=== PATIENT | male | born 1960 | race Caucasian/White ===

== ENCOUNTER 2020-11-06 03:05 | Inpatient (IN) | payer MEDICAID, SELFPAY ==
[~2020-11-06] VITALS: Ht 182.9 cm; Wt 106.6 kg
[2020-11-06 03:05] VITALS: BP_SYST 138
[~2020-11-06 03:05] MED LIST: ASPI-859 PO; GLIP10TA11 PO; LISI2.5T48 PO; LOP600 PO; SITA100T11 PO
[2020-11-06] MEDS ORDERED: MORPHINE 4 MG/ML INJ. SYRINGE IVP ONE (03:15)
[2020-11-06] MEDS ORDERED: DIPHENHYDRAMINE INJ 50 MG/ML VIAL IVP ONE (03:15)
[2020-11-06] MEDS ORDERED: ONDANSETRON HCL 4 MG/2 ML VIAL IVP ONE (03:15)
[2020-11-06] MEDS ORDERED: NACL 0.9% 1,000 ML IV ONE ×2 (03:15→08:00)
[2020-11-06] MEDS ORDERED: PANTOPRAZOLE SODIUM 40 MG/VIAL (PROTONIX) IVP ONE (04:15)
[2020-11-06] MEDS ORDERED: INSULIN REGULAR, HUMAN 10 UNITS/0.1 ML INJ IVP ONE (04:15)
[2020-11-06 04:50] LABS: BASOPHILS % (AUTO) 0.4 % (0.0-2.0)
[2020-11-06] MEDS ORDERED: fentaNYL CITRATE/PF 100 MCG/2 ML AMP IVP ONE (05:00)
[2020-11-06 05:06] LABS: EOSINOPHILS % (AUTO) 0.4 % (0.0-4.0); HEMATOCRIT 47.1 % (36-54); HEMOGLOBIN 15.6 g/dL (14.0-18.0); LYMPHOCYTES # (AUTO) 1.7 K/uL (1.0-5.5); LYMPHOCYTES % (AUTO) 14.3 % (20.5-51.5); MEAN CORPUSCULAR HEMOGLOBIN 29 pg (27-31); MEAN CORPUSCULAR HGB CONC 33 % (32-36); MEAN CORPUSCULAR VOLUME 87 fL (79.0-98.0); MONOCYTES # (AUTO) 0.4 K/uL (0.0-1.0); MONOCYTES % (AUTO) 3.3 % (1.7-9.3); NEUTROPHILS # (AUTO) 9.8 K/uL (1.8-7.7); NEUTROPHILS % (AUTO) 81.6 % (40.0-70.0); PLATELET COUNT (AUTO) 161 K/uL (130-430); RED BLOOD CELL COUNT(AUTO) 5.39 MIL/uL (4.2-6.2); RED CELL DISTRIBUTION WIDTH 14.2 % (9.0-15.0)
[2020-11-06 05:10] LABS: CHOLESTEROL 373 mg/dL (<200)
[2020-11-06 05:18] LABS: BILIRUBIN,URINE NEGATIVE (NEGATIVE); BLOOD, URINE NEGATIVE (NEGATIVE); CLARITY/URINE CLEAR (CLEAR); COLOR,URINE YELLOW (YELLOW); GLUCOSE,URINE 3+ (NEGATIVE); KETONES,URINE 2+ (NEGATIVE); LEUKOCYTE ESTERASE ,URINE NEGATIVE (NEGATIVE); NITRITE, URINE NEGATIVE (NEGATIVE); PROTEIN URINE 1+ (NEGATIVE); UROBILINOGEN,URINE 0.2 (0.2-1.0)
[2020-11-06 05:24] LABS: TRIGLYCERIDES 5633 mg/dL (30-150)
[2020-11-06 05:46] LABS: CREATININE 0.73 mg/dL (0.55-1.30)
[2020-11-06 05:59] LABS: POTASSIUM 4.1 mmol/L (3.5-5.1)
[2020-11-06 06:01] LABS: CALCIUM 6.3 mg/dL (8.4-11.0)
[2020-11-06] MEDS ORDERED: MORPHINE 2 MG/ML INJ. SYRINGE IVP PRN (06:30)
[2020-11-06] MEDS ORDERED: GLUCOSE (DEXTROSE) ORAL GEL -Adults PO PRN (07:00)
[2020-11-06] MEDS ORDERED: D5W 1,000 ML IV PRN (07:00)
[2020-11-06] MEDS ORDERED: DEXTROSE 50%-WATER 50 ML DISP.SYRIN IVP PRN (07:00)
[2020-11-06] MEDS: NACL 0.9% 1,000 ML IV SCH ×3 (07:02→22:16)
[2020-11-06] MEDS ORDERED: LORA-259 PO (07:35)
[2020-11-06] MEDS: MORPHINE 4 MG/ML INJ. SYRINGE IVP PRN ×3 (09:52→22:17)
[2020-11-06 10:00] VITALS: BP_SYST 140
[2020-11-06] MEDS ORDERED: ONDANSETRON HCL 4 MG/2 ML VIAL IVP PRN (10:45)
[2020-11-06] MEDS ORDERED: METOCLOPRAMIDE HCL 10 MG/2 ML VIAL IVP PRN (10:45)
[2020-11-06] MEDS: INSULIN REGULAR, HUMAN 100 UNITS/ML, 10 ML VIAL (humuLIN R) SUBCUT SCH ×3 (11:38→23:40)
[2020-11-06 16:30] VITALS: BP_SYST 115
[2020-11-06 18:03] LABS: CREATININE 0.85 mg/dL (0.55-1.30); POTASSIUM 4.1 mmol/L (3.5-5.1)
[2020-11-06 18:08] LABS: CALCIUM 6.7 mg/dL (8.4-11.0)
[2020-11-06 18:19] LABS: ALBUMIN 2.9 g/dL (3.4-4.8); TOTAL BILIRUBIN 0.7 mg/dL (0.0-1.0)
[2020-11-06 21:00] VITALS: BP_SYST 112
[2020-11-06] MEDS ORDERED: PIPERACILLIN/TAZOBACTAM 3.375 GM/VIAL (ZOSYN) IV ONE (22:52)
[2020-11-06] MEDS: PIPERACILLIN/TAZO 3.375/DEX-IS 50 ML IV SCH (23:30)
[2020-11-07 01:53] VITALS: BP_SYST 112
[2020-11-07] MEDS: PIPERACILLIN/TAZO 3.375/DEX-IS 50 ML IV SCH ×4 (04:59→22:15)
[2020-11-07] MEDS: NACL 0.9% 1,000 ML IV SCH ×4 (04:59→19:48)
[2020-11-07] MEDS: INSULIN REGULAR, HUMAN 100 UNITS/ML, 10 ML VIAL (humuLIN R) SUBCUT SCH ×3 (05:22→17:54)
[2020-11-07 06:23] LABS: BASOPHILS % (AUTO) 0.4 % (0.0-2.0); EOSINOPHILS % (AUTO) 0.4 % (0.0-4.0); HEMATOCRIT 42.8 % (36-54); HEMOGLOBIN 14.7 g/dL (14.0-18.0); LYMPHOCYTES # (AUTO) 1.6 K/uL (1.0-5.5); LYMPHOCYTES % (AUTO) 14.8 % (20.5-51.5); MEAN CORPUSCULAR HEMOGLOBIN 30 pg (27-31); MEAN CORPUSCULAR HGB CONC 34 % (32-36); MEAN CORPUSCULAR VOLUME 88 fL (79.0-98.0); MONOCYTES # (AUTO) 0.5 K/uL (0.0-1.0); MONOCYTES % (AUTO) 4.8 % (1.7-9.3); NEUTROPHILS # (AUTO) 8.5 K/uL (1.8-7.7); NEUTROPHILS % (AUTO) 79.6 % (40.0-70.0); PLATELET COUNT (AUTO) 196 K/uL (130-430); RED BLOOD CELL COUNT(AUTO) 4.85 MIL/uL (4.2-6.2); RED CELL DISTRIBUTION WIDTH 14.4 % (9.0-15.0); WHITE BLOOD COUNT (AUTO) 10.7 K/uL (4.8-10.8)
[2020-11-07 07:27] LABS: ALBUMIN 2.8 g/dL (3.4-4.8); CALCIUM 7.7 mg/dL (8.4-11.0); CREATININE 1.05 mg/dL (0.55-1.30); POTASSIUM 4.1 mmol/L (3.5-5.1); THYROID STIMULATING HORMONE 0.87 uIu/mL (0.36-3.74); TOTAL BILIRUBIN 0.5 mg/dL (0.0-1.0)
[2020-11-07 08:00] VITALS: BP_SYST 124
[2020-11-07] MEDS ORDERED: NACL 0.9% 1,000 ML IV ONE (10:15)
[2020-11-07 12:11] VITALS: BP_SYST 109
[2020-11-07 16:19] VITALS: BP_SYST 115
[2020-11-07] MEDS: MORPHINE 4 MG/ML INJ. SYRINGE IVP PRN (19:57)
[2020-11-07 20:00] VITALS: BP_SYST 104
[2020-11-08] MEDS: INSULIN REGULAR, HUMAN 100 UNITS/ML, 10 ML VIAL (humuLIN R) SUBCUT SCH ×5 (00:10→23:46)
[2020-11-08 00:15] VITALS: BP_SYST 103
[2020-11-08] MEDS ORDERED: ACETAMINOPHEN 325 MG TABLET PO PRN (00:30)
[2020-11-08] MEDS: NACL 0.9% 1,000 ML IV SCH ×4 (01:11→20:04)
[2020-11-08] MEDS: PIPERACILLIN/TAZO 3.375/DEX-IS 50 ML IV SCH ×2 (03:41→11:02)
[2020-11-08 06:35] LABS: BASOPHILS % (AUTO) 0.5 % (0.0-2.0); EOSINOPHILS # (AUTO) 0.1 K/uL (0.0-0.4); EOSINOPHILS % (AUTO) 1.6 % (0.0-4.0); HEMATOCRIT 37.4 % (36-54); HEMOGLOBIN 12.4 g/dL (14.0-18.0); LYMPHOCYTES # (AUTO) 1.9 K/uL (1.0-5.5); LYMPHOCYTES % (AUTO) 21.1 % (20.5-51.5); MEAN CORPUSCULAR HEMOGLOBIN 29 pg (27-31); MEAN CORPUSCULAR HGB CONC 33 % (32-36); MEAN CORPUSCULAR VOLUME 89 fL (79.0-98.0); MONOCYTES # (AUTO) 0.3 K/uL (0.0-1.0); MONOCYTES % (AUTO) 3.4 % (1.7-9.3); NEUTROPHILS # (AUTO) 6.7 K/uL (1.8-7.7); NEUTROPHILS % (AUTO) 73.4 % (40.0-70.0); PLATELET COUNT (AUTO) 126 K/uL (130-430); RED BLOOD CELL COUNT(AUTO) 4.21 MIL/uL (4.2-6.2); WHITE BLOOD COUNT (AUTO) 9.1 K/uL (4.8-10.8)
[2020-11-08 06:55] LABS: ALBUMIN 2.3 g/dL (3.4-4.8); CALCIUM 7.9 mg/dL (8.4-11.0); CREATININE 0.92 mg/dL (0.55-1.30); POTASSIUM 3.7 mmol/L (3.5-5.1); TOTAL BILIRUBIN 0.4 mg/dL (0.0-1.0)
[2020-11-08 08:20] VITALS: BP_SYST 117
[2020-11-08 12:00] VITALS: BP_SYST 122
[2020-11-08] MEDS: cefTRIAXone 1 GM in D5W 50 ML IV SCH (13:01)
[2020-11-08 16:00] VITALS: BP_SYST 124
[2020-11-08 20:00] VITALS: BP_SYST 138
[2020-11-08] MEDS: MORPHINE 4 MG/ML INJ. SYRINGE IVP PRN (23:57)
[2020-11-09 00:38] VITALS: BP_SYST 117
[2020-11-09] MEDS: INSULIN REGULAR, HUMAN 100 UNITS/ML, 10 ML VIAL (humuLIN R) SUBCUT SCH ×2 (06:00→11:35)
[2020-11-09] MEDS: NACL 0.9% 1,000 ML IV SCH (06:40)
[2020-11-09 08:23] VITALS: BP_SYST 119
[2020-11-09] MEDS ORDERED: MAGNESIUM CITRATE 300 ML ORAL SOLUTION PO ONE (09:30)
[2020-11-09] MEDS ORDERED: LOP600 PO (10:20)
[2020-11-09] MEDS ORDERED: LIP40 PO (10:20)
[2020-11-09] MEDS ORDERED: GLIP5TAB13 PO (10:20)
[2020-11-09 11:22] VITALS: BP_SYST 125
[2020-11-09 11:25] VITALS: BP_SYST 125
[2020-11-09] MEDS: cefTRIAXone 1 GM in D5W 50 ML IV SCH (11:32)
[2020-11-09] MEDS ORDERED: GEMFIBROZIL 600 MG TABLET (LOPID) PO SCH (21:00)
[2020-11-10] MEDS ORDERED: ATORVASTATIN 20 MG TABLET PO SCH (09:00)
== END 2020-11-09 13:48 | disposition home or self-care (01) | DRG 282 ==
LOC: SED 03:05 → INTOOBSV 06:27 → SMU 06:27 → OBSVTOIN 11-07 13:57
PROVIDERS: ADMIT Internal Medicine Hospice and Palliative Medicine; ATTEND Internal Medicine Hospice and Palliative Medicine
DX: K85.80 Other acute pancreatitis without necrosis or infection (principal); E78.5 Hyperlipidemia, unspecified; E11.65 Type 2 diabetes mellitus with hyperglycemia; E66.9 Obesity, unspecified; E78.1 Pure hyperglyceridemia; K86.3 Pseudocyst of pancreas; Z20.822 Contact with and (suspected) exposure to COVID-19; K86.1 Other chronic pancreatitis; Z83.3 Family history of diabetes mellitus; Z82.49 Family history of ischemic heart disease and other diseases of the circulatory system; Z91.14 Patient's other noncompliance with medication regimen; Z91.11 Patient's noncompliance with dietary regimen; Z68.31 Body mass index [BMI] 31.0-31.9, adult; Z84.89 Family history of other specified conditions
CPT/HCPCS: 36415; 71045; 76376; 80048; 80053; 80061; 81003; 82150-TC; 82465-TC; 82787; 82962; 83036; 83615-TC; 83690-TC; 84443-TC; 84478-TC; 85025; 86038; 86301; 87040-TC; 93005; 96361; 96374; 96375; C9113; G0378; J0696; J1200; J1815; J2270; J2405; J2543; J3010; J7030; J7060